=== PATIENT | female | born 1980 | race Caucasian/White ===

== ENCOUNTER 2022-07-03 13:18 | Emergency (ER) | payer BC, SELFPAY ==
[2022-07-03 13:56] VITALS: BP 151/88; PULSE 64; RESP 16; TEMP 37.2; O2SAT 99
--- NOTE | 2022-07-03 14:23 | ED.URI ---
HPI - URI/Sore Throat General Chief Complaint: Upper Respiratory Infection Stated Complaint: Sinus Time Seen by Provider: 07/03/22 14:23 Source: patient and RN notes reviewed Mode of arrival: ambulatory Limitations: no limitations History of Present Illness HPI Narrative: 41-year-old female presents to the [facility] with complaints of sinus congestion for 2-3 days. Had taken 1 dose of NyQuil, 1 dose of DayQuil. No treatment today. Denies any fevers. Denies any chest pain or abdominal pain. Denies any sore throat or ear pain. States that she just blew out yellow snot this morning. States I always get antibiotics for my primary care provider patient became hostile when and P try to explain we do not give antibiotics for all sinus congestion is a. Explained to patient that we can not prescribe a steroid for her as well as a nasal spray. She became upset, started crying and threatening to file complaints. Related Data Allergies Allergy/AdvReac Type Severity Reaction Status Date / Time No Known Allergies Allergy Verified 07/03/22 14:55 Review of Systems Review of Systems: All systems reviewed & are unremarkable except as noted in HPI and below Constitutional: Constitutional: Reports no additional constitutional complaints Eyes: Eyes: Reports no additional eye complaints ENT: Reports as per HPI, Reports nasal congestion and Denies sore throat Cardiovascular: Cardiovascular: Reports no additional cardiovascular complaints, Denies chest pain and Denies dyspnea Respiratory: Respiratory: Reports no additional respiratory complaints, Denies chest congestion, Denies cough and Denies dyspnea Gastrointestinal: Gastrointestinal: Reports no additional gastrointestinal complaints, Denies abdominal pain, Denies nausea and Denies vomiting Musculoskeletal: Musculoskeletal: Reports no additional musculoskeletal complaints Integumentary/Breasts: Skin/Breast: Reports system reviewed and no additional complaints, except as docu Neurologic: Reports system reviewed and no additional complaints, except as documented Psychiatric: Psychiatric: Reports no additional psychiatric complaints Allergic/Immunologic: Allergic/Immunologic: Reports no additional allergic/immunologic complaints [facility] Family History Family History Other Family history of coronary artery disease Hypertension Social History Social History Smoking status: Never smoker Alcohol intake: never Comments At the time of my signature, I reviewed and agree with the nursing past medical, surgical, social, and family history. There is no relevant family history pertinent to the patient complaint. Exam Const: General: cooperative, healthy appearing, comfortable, no acute distress, well developed, alert and well nourished Nutritional Appearance: well nourished and obese Orientation/consciousness: patient oriented x3 Limitations: no limitations HENMT: Head: normal to inspection Ears: hearing grossly normal bilaterally and external ears normal Face/Nose/Sinus: Normal external nose present, Normal nares present, Normal nasal mucous membranes and turbinates present, Nasal discharge present clear bilateral and normal facial exam Face and sinus: normal facial exam Mouth: Yes Normal oral and palatal mucosa present, Yes lip normal and Yes moist mucous membranes Throat: posterior oropharynx normal, uvula midline and postnasal drainage Eyes: General: appearance normal, both eyes and all related structures Alignment and Position: alignment normal Periorbital: periorbital findings normal Conjunctivae: conjunctivae normal Pupils: Equal, round and reactive pupils present EOM: EOMs intact bilaterally Neck: Neck: normal visual inspection, full ROM, no lymphadenopathy and no meningeal signs Chest: Chest palpation & inspection: normal inspection of the chest Resp: Effort
--- NOTE | 2022-07-03 14:52 | PC.NURSE ---
requested to see a different provider d/t request for abx for 3 days and provider explained no abx at this time. provider aware of pt concern.
== END 2022-07-03 14:57 | disposition home or self-care (01) ==
PROVIDERS: Emergency Provider Nurse Practitioner; PCP Otolaryngology
DX: J32.9 Chronic sinusitis, unspecified (principal)
CPT/HCPCS: 99213; G0463

== ENCOUNTER 2023-01-15 21:24 | Observation (INO) | payer BC, SELFPAY ==
[2023-01-15] VITALS (8 sets, daily range): BP systolic 162–183; BP diastolic 99–102; PULSE 70–91; RESP 15–22; TEMP 36.9; O2SAT 97–100
--- NOTE | ~2023-01-15 | CT_ITS ---
EXAMINATION: CTA brain carotid DATE: 01/15/2023 23:51 INDICATION: Slurred speech. TECHNIQUE: Computed tomographic angiography (CTA) of the head was performed without and with 100 mL O mnipaque-350 intravenous contrast. CTA of the neck was performed with intravenous contrast. Automated exposure control and iterative reconstruction technique were employed. The dose-length product was 1 808.25 mGy-cm. Maximum intensity projection and volume rendered 3D-reconstructions were created by chrissy galeas technologist on a separate workstation. COMPARISON: None. FINDINGS: HEAD CTA: There is no intracranial hemorrhage, acute infarction, or abnormal intracranial mass lesion . The ventricles are normal in size. The orbits are normal. The paranasal sinuses are clear. The mast oid air cells are normal. Right vertebral artery is dominant. There is no significant stenosis of bas ilar artery or the posterior cerebral arteries. The posterior communicating arteries are normal. Ther e is no significant stenosis of the intracranial internal carotid arteries or anterior cerebral arter ies. There is total occlusion of a right M2 middle cerebral artery. Anterior communicating artery is normal. There is no aneurysm. NECK CTA: There are no pathologically enlarged lymph nodes. There is no significant stenosis of the v ertebral arteries. There is no visible plaque in the proximal internal carotid arteries. There is 0% stenosis of the proximal right internal carotid artery relative to normal distal artery lumen diamete r (NASCET criteria). There is 0% stenosis of the proximal left internal carotid artery relative to no rmal distal artery lumen diameter. There is mild cervical spondylosis. IMPRESSION: 1. 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 2. Normal brain parenchyma. 3. 0% stenosis of the proximal internal carotid arteries relative to normal distal artery lumen diame ters (NASCET criteria). Reviewed, dictated and finalized at location A. IMPRESSION: 1. 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 2. Normal brain parenchyma. 3. 0% stenosis of the proximal internal carotid arteries relative to normal dis breann artery lumen diameters (NASCET criteria).
--- NOTE | ~2023-01-15 | MR_ITS ---
EXAMINATION: MR brain/brain stem wo/w con DATE: 01/16/2023 10:16 INDICATION: Transient ischemic attack. Left hemiparesis. TECHNIQUE: Magnetic resonance imaging (MRI) of the brain and brainstem was performed without and with 20 mL MultiHance intravenous contrast. COMPARISON: Head CT 01/15/2023 FINDINGS: There are acute infarcts involving the right frontal and parietal lobes and right insula. T here is no intracranial hemorrhage or abnormal mass lesion. There is thrombus in a right M2 middle ce rebral artery with blooming decreased T2*weighted signal intensity. There are small old infarcts in r ight cerebellum. There are scattered areas of nonspecific increased T2-weighted signal intensity in t he cerebral white matter. The ventricles are normal in size. The orbits are normal. The paranasal sin uses are clear. The mastoid air cells are normal. IMPRESSION: 1. Acute infarcts involving the right frontal and parietal lobes and right insula. 2. Thrombus in a right M2 middle cerebral artery. 3. Small old infarcts in the right cerebellum. 4. Mild nonspecific cerebral white matter disease, which likely represents chronic small vessel ische samuel disease. Reviewed, dictated and finalized at location A. IMPRESSION: 1. Acute infarcts involving the right frontal and parietal lobes and right insu la. 2. Thrombus in a right M2 middle cerebral artery. 3. Small old infarcts in the right cerebellum. 4. 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
--- NOTE | 2023-01-15 22:48 | ECG_ITS ---
Measurements Intervals [place] Rate: 76 P: 38 NH: 184 QRS: -3 QRSD: 93 T: 10 QT: 382 QTc: 432 Interpretive Statements SINUS RHYTHM DELAYED PRECORDIAL R/S TRANSITION BORDERLINE ECG NO PREVIOUS ECG AVAILABLE FOR COMPARISON Electronically Signed On 01-16-2023 7:32:56 CDT by Adi Leon D.O.
[2023-01-15] MEDS: SODIUM CHLORIDE 0.9% IV 1,000 ML 999 ML IV CONT (23:16)
[2023-01-15 23:19] LABS: Basophils Absolute Auto 0.1 K/mm3 (0.0-0.1); Basophils Percent Auto 0.8 % (0.2-1.2); Eosinophils Absolute Auto 0.3 K/mm3 (0-0.3); Eosinophils Percent Auto 3.4 % (0-4.4); Hematocrit 38.8 % (37.0-47.0); Hemoglobin 12.3 g/dL (12.0-15.0); Immature Granulocyte Absolute 0.03 K/mm3 (0.00-0.031); Immature Granulocyte Percent A 0.3 % (0-0.5); Lymphocytes Absolute Auto 1.99 K/mm3 (0.9-3.2); Lymphocytes Percent Auto 20.2 % (18.3-44.2); Mean Corpuscular HGB Conc 31.7 g/dl (32-36); Mean Corpuscular Hemoglobin 26.9 pg (26-34); Mean Corpuscular Volume 84.7 fl (80-100); Mean Platelet Volume 9.3 fl (7.4-10.4); Monocytes Absolute Auto 0.6 K/mm3 (0.1-0.6); Monocytes Percent Auto 5.6 % (2.6-8.5); Neutrophils Absolute Auto 6.9 K/mm3 (1.3-6.7); Neutrophils Percent Auto 69.7 % (45.5-73.1); Platelet Count Result 208 k/mm3 (150-375); Red Blood Count 4.58 M/mm3 (4.2-5.4); Red Cell Distribution Width 13.3 % (11.5-14.5); White Blood Count 9.9 K/mm3 (4.5-10.0)
[2023-01-15 23:23] LABS: Bacteria Urine None Seen /hpf; Non Pathogenic Casts 0-2; RBC Urine >100 /hpf (0-2); Squamous Epithelial Cell Urine Occasional /hpf (Few)
[2023-01-15 23:31] LABS: Alanine Aminotransferase 22 U/L (6-35); Albumin Level 4.4 g/dL (3.5-5.1); Alkaline Phosphatase 81 U/L (38-126); Anion Gap 8 mmol/L (8-16); Aspartate Amino Transferase 28 U/L (14-36); Bilirubin,Total 0.4 mg/dL (0.2-1.3); Blood Urea Nitrogen 16 mg/dL (7-17); Calcium 9.1 mg/dL (8.4-10.2); Carbon Dioxide 23 mmol/L (22-30); Chloride 104 mmol/L (98-107); Estimated CRCL calculation 74 ml/min; Estimated Glomerular Filt Rate 49; Glucose 109 mg/dL (65-110); Magnesium 1.7 mg/dL (1.6-2.3); Potassium 4.2 mmol/L (3.4-5.0); Sodium 135 mmol/L (137-145)
[2023-01-15 23:31] LABS: Lactic Acid Reflex 1.5 mmol/L (0.7-2.0)
[2023-01-15 23:31] LABS: Appearance Urine Cloudy (Clear); Bilirubin Urine Negative (Negative); Blood Urine 3+ (Negative); Color Urine Orange (Yellow); Glucose Urine UA Negative (Negative); Ketones Urine Negative (Negative); Leukocyte Esterase Ur Trace LEU/UL (Negative); Nitrate Urine Negative (Negative); Protein Urine Trace mg/dL (Negative); Specific Grav Ur 1.013 (1.001-1.035); Urobilinogen Urine 0.2 mg/dL (<2.0)
[2023-01-15 23:33] LABS: Add Urine Microscopic? YES
[2023-01-15 23:34] LABS: Prothrombin Time 13.1 Seconds (11.1-14.7)
[2023-01-15 23:35] LABS: Partial Thromboplastin Time 25.3 SECONDS (22.3-36.8)
[2023-01-15 23:42] LABS: Troponin I < 0.012 ng/mL (0.000-0.034)
[2023-01-16] VITALS (14 sets, daily range): BP systolic 132–162; BP diastolic 78–97; PULSE 70–90; RESP 14–20; TEMP 35.8–36.4; O2SAT 98–100
--- NOTE | 2023-01-16 01:59 | ED.GENADULT ---
HPI - General Adult General Chief complaint: Unspecified Stated complaint: limbs feel heavy Time Seen by Provider: 01/15/23 22:16 History of Present Illness HPI narrative: Patient 42-year-old female who presents the emergency department with chief complaint of weakness. 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 Patient reports no prior history of stroke no prior history of underlying disease Related Data Allergies Allergy/AdvReac Type Severity Reaction Status Date / Time No Known Allergies Allergy Verified 07/03/22 14:55 Review of Systems Review of Systems: A 10 system review of systems was completed on the patient and is negative except for what is stated in the HPI. Nursing and ancillary documentation was reviewed. [facility] Family History Family History Other Family history of coronary artery disease Hypertension Social History Social History Smoking status: Never smoker Alcohol intake: never Exam Narrative: GENERAL: Well-appearing, well-nourished, and in no acute distress. HEAD: Normocephalic, atraumatic. EYES: PERRLA and EOMI. ENT: Nares clear, no rhinorrhea or epistaxis. Mucous membranes moist. NECK: Supple. CHEST: Clear to auscultation. No respiratory distress. HEART: Regular rate and rhythm. No murmur heard. Normal peripheral pulses. ABDOMEN: Soft, nontender, nondistended, normal active bowel sounds. EXTREMITIES: Normal range of motion. No edema. SKIN: Warm, dry, no rash. NEURO: No focal deficits. Alert and oriented x3. PSYCH: Normal mood and affect. Course Vital Signs Vital signs: Vital Signs Temperature 36.9 C 01/15/23 21:26 Pulse Rate 81 01/15/23 21:26 Respiratory Rate 16 01/15/23 21:26 Blood Pressure 183/99 H 01/15/23 21:26 Pulse Oximetry 100 01/15/23 21:26 Oxygen Delivery Room Air 01/15/23 21:26 Temperature 36.9 C 01/15/23 21:26 Pulse Rate 71 01/16/23 00:45 Respiratory Rate 20 01/16/23 00:45 Blood Pressure 166/99 H 01/15/23 23:17 Pulse Oximetry 100 01/16/23 00:45 Oxygen Delivery Room Air 01/15/23 21:26 Medical Decision Making MDM Narrative Medical decision making narrative: Differential diagnosis includes CVA, large vessel occlusion, TIA, embolic event, dysrhythmia EKG showed no evidence of atrial fibrillation or dysrhythmia. Laboratory studies are within normal limits. CTA head and neck with CTA brain showed no evidence of acute abnormality. Given the patient's symptoms are resolved but given the significance of the severity the patient will be admitted for observation and MRI and echo the case was discussed with Dr. Pierson and who accepted the patient. Vital Signs Vital Signs: Vital Signs Temperature 36.9 C 01/15/23 21:26 Pulse Rate 81 01/15/23 21:26 Respiratory Rate 16 01/15/23 21:26 Blood Pressure 183/99 H 01/15/23 21:26 Pulse Oximetry 100 01/15/23 21:26 Oxygen Delivery Room Air 01/15/23 21:26 Temperature 36.9 C 01/15/23 21:26 Pulse Rate 71 01/16/23 00:45 Respiratory Rate 20 01/16/23 00:45 Blood Pressure 166/99 H 01/15/23 23:17 Pulse Oximetry 100 01/16/23 00:45 Oxygen Delivery Room Air 01/15/23 21:26 Lab Data 01/15/23 23:13 01/15/23 23:12 Labs: Lab Results 01/15/23 01/15/23 01/15/23 Range/Units 23:07 23:12 23:13 WBC 9.9 (4.5-10.0) K/mm3 RBC 4.58 (4.2-5.4) M/mm3 Hgb 12.3 (12.0-15.0) g/dL Hct 38.8 (37.0-47.0) % MCV 84.7 (80-
--- NOTE | 2023-01-16 07:33 | PM.IMHP ---
H&P: HPI History of Present Illness Date/Time: 01/16/23 07:33 Chief Complaint: Slurred speech, bilateral upper lower extremity weakness Narrative: This is a a 42-year-old female with a insignificant past medical history that presented to the ED on 01/16/2023 with chief complaint of slurred speech and bilateral upper and lower extremity weakness. Patient states that her symptoms started at 4:30 p.m. on 01/15/2023 and she noticed that when she was talking to her daughter her speech began slurring. She also noticed that her arms and legs felt really heavy and weak. She had difficulty walking and felt faint. [place] as if she was off balance and unstable on her feet. She also noticed that while she was singing to her daughter her voice was off [place] and her primary care provider was informed of this and advised her to be seen in the ER. On arrival to the ED patient's symptoms had basically dissolved. Her speech improved and she no longer has any slurred speech or dysphagia. Her lower extremities have regained their strength. She does have some lingering left hand weakness. Patient denies any smoking, history of clotting disorder or known history of prior stroke. She does take control but she has been on this for a couple decades. Patient was started on Plavix, aspirin and atorvastatin. Neurology consulted. It is in question if patient will need transferred out in to tertiary care center. Considering Hematology consult due to patient's age. CTA of the head and neck revealed total occlusion of the right M2 middle cerebral artery and 0% stenosis in bilateral carotids. Echocardiogram and MRI ordered. Review of Systems Review of Systems: All systems reviewed & are unremarkable except as noted in HPI and below [facility] Past Medical History Medical History (Updated 01/16/23 @ 13:40 by Cynthia Ascencio PA-C) Depression Surgical History Surgical History (Updated 01/16/23 @ 13:41 by Cynthia Ascencio PA-C) History of orthopedic surgery Family History Family History (Updated 01/16/23 @ 13:41 by Cynthia Ascencio PA-C) Grandparent Cerebrovascular accident Heart disease Other Family history of coronary artery disease Hypertension Social History Social History Smoking status: Never smoker Alcohol intake: never Substance use: never Substance use type: does not use Lack of Transportation: No Lack of Food: Never True Current Housing: I Have Housing Concerned About Future Housing: No Difficulty Paying Gas/Electric Bills: No Difficulty Paying for Meds: No Currently Unemployed: No Education: Bachelor's Degree Difficulty w/ Childcare or Family Care: No Spiritual care concerns: No Meds Home Medications and Allergies Home Medications Medication Instructions Recorded Confirmed Type fluticasone propionate 50 2 spray intranasal DAILY #16 grams 07/03/22 01/16/23 Rx mcg/actuation nasal spray,suspension (Flonase Allergy Relief) desogestrel 0.15 mg-ethinyl 1 tablet PO DAILY 01/16/23 01/16/23 History estradiol 0.03 mg tablet (Isibloom) escitalopram oxalate 10 mg tablet 10 mg PO DAILY 01/16/23 01/16/23 History Allergies Allergy/AdvReac Type Severity Reaction Status Date / Time No Known Allergies Allergy Verified 07/03/22 14:55 Vital Signs Vital Signs - 24 hr 01/15/23 21:26 01/15/23 22:01 01/15/23 22:07 Temperature 98.4 F Pulse Rate 81 75 71 Respiratory Rate 16 22 H 21 H Blood Pressure 183/99 H Pulse Oximetry 100 100 100 Oxygen Delivery Room Air 01/15/23 22:15 01/15/23 23:10 01/15/23 23:11 Temperature Pulse Rate 70 91 82 Respiratory Rate 22 H 20 15 Blood Pressure 162/102 H Pulse Oximetry 97 100 Oxygen Delivery 01/15/23 23:17 01/15/23 23:18 01/16/23 00:01 Temperature Pulse Rate 79 73 72 Respiratory Rate 22 H 16 14 Blood Pressure 166/99 H Pulse Oximetry 100 99 100 O
[2023-01-16] MEDS: FLUTICASONE PROPIONATE 0.05% NA SPR 16 GM BTL (*BKC) 2 SPRAY NASAL (08:15)
[2023-01-16] MEDS: ASPIRIN 81 MG CHEWABLE TABLET PO (08:15)
[2023-01-16] MEDS: ESCITALOPRAM OXALATE 10 MG TABLET PO (08:15)
[2023-01-16 08:23] LABS: Hematocrit 37.7 % (37.0-47.0); Hemoglobin 11.9 g/dL (12.0-15.0); Mean Corpuscular HGB Conc 31.6 g/dl (32-36); Mean Corpuscular Hemoglobin 26.9 pg (26-34); Mean Corpuscular Volume 85.3 fl (80-100); Mean Platelet Volume 9.4 fl (7.4-10.4); Platelet Count Result 183 k/mm3 (150-375); Red Blood Count 4.42 M/mm3 (4.2-5.4); Red Cell Distribution Width 13.2 % (11.5-14.5); White Blood Count 9.1 K/mm3 (4.5-10.0)
[2023-01-16 08:53] LABS: Anion Gap 4 mmol/L (8-16); Blood Urea Nitrogen 12 mg/dL (7-17); Calcium 8.6 mg/dL (8.4-10.2); Carbon Dioxide 22 mmol/L (22-30); Chloride 106 mmol/L (98-107); Estimated CRCL calculation 88 ml/min; Estimated Glomerular Filt Rate > 60; Glucose 103 mg/dL (65-110); Potassium 3.7 mmol/L (3.4-5.0); Sodium 132 mmol/L (137-145)
[2023-01-16 11:02] LABS: Magnesium 1.7 mg/dL (1.6-2.3)
[2023-01-16 11:06] LABS: Cholesterol 226 mg/dL (0-200); HDL Direct 70 mg/dL; Triglycerides 139 mg/dL (<150)
[2023-01-16 11:12] LABS: LDL Cholesterol Direct 118 mg/dL
[2023-01-16] MEDS: CLOPIDOGREL BISULFATE 300 MG TABLET PO (11:28)
--- NOTE | 2023-01-16 13:08 | PC.NURSE ---
Dr. Sow returned call. given information regarding MRI and CTA reports. He is on the way to see her and then will decide plan of care.
--- NOTE | 2023-01-16 15:31 | WPDNEURCNPN ---
Assessment and Plan Assessment and plan (1) CVA (cerebral vascular accident): Code(s): I63.9 - Cerebral infarction, unspecified Status: Acute (2) Thrombosis of middle cerebral artery: Code(s): I66.09 - Occlusion and stenosis of unspecified middle cerebral artery Status: Acute Plan 1. Acute infarct involving the right frontal and parietal lobes and right insula with thrombus in the right M2 middle cerebral artery. 2. Small old infarct in the right cerebellum 3. Nonspecific cerebral white matter disease representing chronic small vessel ischemic changes. 4. Total occlusion of the right M2 middle cerebral artery on CTA. 5. Continue aspirin 81 mg daily with Plavix 75 mg daily, all the pros and cons discussed with the family about the future care particularly keeping the lower cholesterol even though she is taking atorvastatin 40 mg daily she might need further adjustment in the future, follow-up with the neurologist in about 6 months, echocardiogram should be completed before she gets discharged, and we can make a courtesy call to be TRACE or slow if they want to see her at this stage though it is extremely unlikely they will do the stenting. Consult date: 01/16/23 HPI: Ayanna Muniz is a 42 year old female Admitted to the hospital through the emergency room with information that patient was initially seen in [facility] complains of sinus congestion of several days duration . She was brought to the emergency room for the complaints of weakness since 30 a.m. in the afternoon with an episode where her arms got really has very heavy and she felt weaker than normal. She gave no history of stroke in the past has no history of stroke in the past, he does not smoke does not drink and her initial vital signs in the emergency room were suggestive for hypertension with blood pressure of 183/99 and repeat 166/99 to EKG was normal without atrial fibrillation or dysrhythmia, CTA of the head and neck was normal. Routine lab studies were also normal except the [place] a she was admitted to the hospital with the diagnosis of TIA with stroke scale of 1. Subsequently CTA documented total occlusion of right M2 middle cerebral artery with normal brain parenchyma no stenosis otherwise and no bleed otherwise and brain MRI documented acute infarct involving the right frontal lobe and parietal lobe and right insula with thrombus in the right M2 middle cerebral artery also small old infarct in the right cerebellum. patient was to continue aspirin 81 mg daily to Plavix 75 mg daily Review of Systems Review of Systems: All systems reviewed & are unremarkable except as noted in HPI and below [facility] Past Medical History Medical History (Updated 01/16/23 @ 15:43 by Howard Sow MD) Depression Surgical History Surgical History (Updated 01/16/23 @ 13:41 by Cynthia Ascencio PA-C) History of orthopedic surgery Family History Family History (Updated 01/16/23 @ 13:41 by Cynthia Ascencio PA-C) Grandparent Cerebrovascular accident Heart disease Other Family history of coronary artery disease Hypertension Social History Social History Smoking status: Never smoker Alcohol intake: never Substance use: never Substance use type: does not use Lack of Transportation: No Lack of Food: Never True Current Housing: I Have Housing Concerned About Future Housing: No Difficulty Paying Gas/Electric Bills: No Difficulty Paying for Meds: No Currently Unemployed: No Education: Bachelor's Degree Difficulty w/ Childcare or Family Care: No Spiritual care concerns: No Meds Home Medications and Allergies Home Medications Medication Instructions Recorded Confirmed Type fluticasone propionate 50 2 spray intranasal DAILY #16 grams 07/03/22 01/16/23 Rx mcg/actuation nasal spray,suspension (Flonase Allergy Relief) desogestrel 0.15 mg-et
[2023-01-16] MEDS: ATORVASTATIN 40 MG TABLET PO ×2 (15:42→17:05)
[2023-01-17] VITALS (7 sets, daily range): BP systolic 145–153; BP diastolic 90–103; PULSE 61–81; RESP 16; TEMP 36.2; O2SAT 99–100
[2023-01-17] MEDS: ACETAMINOPHEN 325 MG TABLET 650 MG PO ×2 (00:55→08:22)
[2023-01-17] MEDS: ONDANSETRON INJ 4 MG/2 ML VIAL IV PUSH (00:55)
--- NOTE | 2023-01-17 06:00 | ECHO_ITS ---
Patient Info Name: Ayanna Muniz Age: 42 years : 1980 Gender: Female Ht: 66 in Wt: 280 lbs BSA: 2.50 m2 HR: 70 bpm BP: 153 / 103 mmHg Heart Rhythm: Sinus Rhythm Technical Quality: Fair Exam Date: 01/17/2023 9:22 AM Exam Location: [facility] Patient Status: Inpatient Admit Date: 01/16/2023 Staff Ordering Physician: Elliot Cody MD Electroneurodiagnostic Technician: Janie Shore RDCS Attending Provider: Erica Luther DO Referring Physician: Escobar HOBBS; Exam Type: CA echo doppler w bubble study Study Info Indications - TIA Complete two-dimensional, color flow and Doppler transthoracic echocardiogram is performed with agitated saline. Contrast/Agitated Saline Contrast/Ag. Saline: Agitated Saline Amount: 20.00 ml Existing IV Access: Yes IV Access Condition: patent with no signs of infiltration Summary 1. Normal left ventricular size thickness and systolic function. 2. Normal atrial dimensions. 3. No valvular dysfunction identified. 4. Agitated saline contrast injection demonstrates no intracardiac shunting. Left Ventricle Left ventricular chamber dimension is normal. Left ventricular systolic function is normal, estimated at 60-65%. The left ventricular diastolic function is normal. Right Ventricle Right ventricular chamber dimension is normal. Left Atria Left atrial chamber dimension is normal. Right Atria Right atrial chamber dimension is normal. Atrial Septum Intact interatrial septum visualized by agitated saline imaging. Aortic Valve The aortic valve is normal. Pulmonic Valve The pulmonic valve is not well visualized. Mitral Valve The mitral valve has normal leaflets. Tricuspid Valve The tricuspid valve leaflets are normal. Pericardium/Pleural The pericardium appears normal. Aorta The aortic root size at the sinus of Valsalva is normal. Left Ventricular Outflow Tract Name Value Normal LVOT 2D LVOT Diameter 2.0 cm LVOT Doppler LVOT Peak Gradient 6 mmHg LVOT Mean Gradient 3 mmHg LVOT VTI 24 cm LVOT VTI/AV VTI Ratio 0.8 LVOT Stroke Volume 78 ml LVOT CO 17.1 l/min LVOT CI 6.8 l/min/m2 Pulmonic Valve Name Value Normal RVOT Doppler RVOT Peak Gradient 2 mmHg PV Doppler PV Peak Gradient 3 mmHg Mitral Valve Name Value Normal MV Doppler MV Decel [place] 380 cm/s2
[2023-01-17 06:11] LABS: Hemoglobin 11.9 g/dL (12.0-15.0); Mean Corpuscular HGB Conc 31.3 g/dl (32-36); Mean Corpuscular Hemoglobin 26.6 pg (26-34); Mean Corpuscular Volume 84.8 fl (80-100); Mean Platelet Volume 9.5 fl (7.4-10.4); Platelet Count Result 206 k/mm3 (150-375); Red Blood Count 4.48 M/mm3 (4.2-5.4); Red Cell Distribution Width 13.1 % (11.5-14.5); White Blood Count 6.9 K/mm3 (4.5-10.0)
[2023-01-17 06:20] LABS: Alanine Aminotransferase 23 U/L (6-35); Alkaline Phosphatase 82 U/L (38-126); Anion Gap 3 mmol/L (8-16); Aspartate Amino Transferase 35 U/L (14-36); Bilirubin,Total 0.4 mg/dL (0.2-1.3); Blood Urea Nitrogen 9 mg/dL (7-17); Calcium 8.8 mg/dL (8.4-10.2); Carbon Dioxide 27 mmol/L (22-30); Chloride 104 mmol/L (98-107); Estimated CRCL calculation 88 ml/min; Estimated Glomerular Filt Rate > 60; Glucose 101 mg/dL (65-110); Magnesium 2.1 mg/dL (1.6-2.3); Potassium 3.8 mmol/L (3.4-5.0); Sodium 134 mmol/L (137-145)
[2023-01-17] MEDS: ATORVASTATIN 40 MG TABLET 80 MG PO (08:05)
[2023-01-17] MEDS: FLUTICASONE PROPIONATE 0.05% NA SPR 16 GM BTL (*BKC) 2 SPRAY NASAL (08:05)
[2023-01-17] MEDS: ESCITALOPRAM OXALATE 10 MG TABLET PO (08:05)
[2023-01-17] MEDS: CLOPIDOGREL BISULFATE 75 MG TABLET PO (08:05)
[2023-01-17 08:27] LABS: Hemoglobin A1C 5.6 % (<5.7)
[2023-01-17] MEDS: ASPIRIN 81 MG CHEWABLE TABLET PO (10:21)
--- NOTE | 2023-01-17 12:26 | WPDNEUROPN ---
Subjective Date/time seen: 01/17/23 12:26 Interval history: remains unchanged in fact feeling much better neuro exam and status unchanged we are waiting for the echocardiogram report and then she will be discharged Objective Data Vital Signs Vital Signs: Vital Signs - 24 hr 01/16/23 12:57 01/16/23 14:00 01/16/23 16:00 Temperature 35.8 C L Pulse Rate 80 83 Respiratory Rate 16 Blood Pressure 132/93 H Pulse Oximetry 100 Oxygen Delivery Room Air 01/16/23 21:49 01/16/23 20:00 01/16/23 20:00 Temperature 36.3 C L Pulse Rate 73 73 85 Respiratory Rate 18 18 Blood Pressure 141/92 H Pulse Oximetry 98 98 Oxygen Delivery Room Air 01/17/23 00:00 01/17/23 04:00 01/17/23 05:47 Temperature 36.2 C L Pulse Rate 69 61 72 Respiratory Rate 16 Blood Pressure 153/103 H Pulse Oximetry 100 Oxygen Delivery 01/17/23 08:00 Temperature Pulse Rate Respiratory Rate Blood Pressure Pulse Oximetry Oxygen Delivery Room Air Intake/Output Intake/Output: Intake & Output 01/14/23 01/15/23 01/16/23 01/17/23 23:59 23:59 23:59 23:59 Intake Total 2432 720 Output Total 1200 500 Balance 1232 220 Meds/Results Medications: Active Medications Generic Name Dose Route Start Last Admin Trade Name Freq PRN Reason Stop Dose Admin Acetaminophen 650 mg 01/16/23 23:36 01/17/23 08:22 Acetaminophen 325 Mg Tablet PO 650 mg Q4H PRN Administration Headache Aspirin 81 mg 01/16/23 08:00 01/17/23 10:21 Aspirin 81 Mg Chewable Tablet PO 81 mg DAILY@0800 HEIDI Administration Atorvastatin Calcium 80 mg 01/17/23 09:00 01/17/23 08:05 Atorvastatin 40 Mg Tablet PO 80 mg DAILY HEIDI Administration Clopidogrel Bisulfate 75 mg 01/17/23 09:00 01/17/23 08:05 Clopidogrel Bisulfate 75 Mg Tablet PO 75 mg QAM HEIDI Administration Escitalopram Oxalate 10 mg 01/16/23 09:00 01/17/23 08:05 Escitalopram Oxalate 10 Mg Tablet PO 10 mg DAILY HEIDI Administration Fluticasone Propionate 2 spray 01/16/23 09:00 01/17/23 08:05 Fluticasone Propionate 0.05% Na Spr 16 Gm Btl (*Bkc) NASAL 2 spray DAILY HEIDI Administration Hydralazine HCl 10 mg 01/16/23 10:29 Hydralazine Hcl 20 Mg/Ml Vial IV PUSH Q8H PRN Blood Pressure - High Miscellaneous Information 0 each 01/16/23 00:01 Isibloom Is Nonformulary - Can Patient Bring From Home? XX 02/15/23 00:00 CLARIFY HEIDI Non-Formulary Medication 1 tablet 01/16/23 09:00 Desogestrel-Ethinyl Estradiol [Isibloom] PO 02/15/23 08:59 DAILY HEIDI Ondansetron HCl 4 mg 01/17/23 00:49 01/17/23 00:55 Ondansetron Inj 4 Mg/2 Ml Vial IV PUSH 4 mg Q4H PRN Administration Nausea And Vomiting Perflutren Lipid Microsphere 0 ml 01/16/23 02:02 Perflutren Lipid Microspheres 1.5 Ml Vial Diluted To 10 Ml Total Volume IV PUSH 01/18/23 02:03 ONCE PRN adequate visualization Protocol Radiology Results: ITS Impressions Head/Neck CTA 01/16/23 09:10 IMPRESSION: 1. 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 2. Normal brain parenchyma. 3. 0% stenosis of the proximal internal carotid arteries relative to normal distal artery lumen diameters (NASCET criteria). Brain MRI 01/16/23 10:21 IMPRESSION: 1. Acute infarcts involving the right frontal and parietal lobes and right insula. 2. Thrombus in a right M2 middle cerebral artery. 3. Small old infarcts in the right cerebellum. 4. Mild nonspecific cerebral white matter disease, which likely represents chronic small vessel ischemic disease. Labs Labs: Laboratory Results - last 24 hr 01/17/23 01/17/23 05:56 05:57 WBC 6.9 RBC 4.48 Hgb 11.9 L Hct 38.0 MCV 84.8 MCH 26.6 MCHC 31.3 L RDW 13.1 Plt Count 206 MPV 9.5 Sodium 134 L Potassium 3.8 Chloride 104 Carbon Dioxide 27 Anion Gap 3 L BUN 9 Creatinine 1.00 Estim Creat Clear Calc 88 Estimated GFR > 60 Gluc
--- NOTE | 2023-01-17 16:26 | PM.IMPN ---
Progress Note: A&P Assessment and Plan (1) CVA (cerebral vascular accident): Code(s): I63.9 - Cerebral infarction, unspecified Status: Acute Assessment and Plan: Patient presented with chief complaint of right arm a weakness as well as ways changes. Patient's symptoms resolved in the ED. -Initiate stroke protocol and neuro's q.4 hours -Neurology consulted, appreciate assistance and recommendations -Monitor CBC, CMP, magnesium, and lipid profile -Monitor blood pressure, allow for permissive hypertension. Will treat hypertension if systolic is greater than 200 and/or diastolic greater than 100 or if the patient has active comorbidities -Telemetry monitoring -Start atorvastatin 40 mg daily -lipid panel revealed elevated cholesterol at 226 -Provide loading dose Plavix 300 mg and aspirin 325, transition to Plavix 75 mg daily and 81 mg aspirin daily -CTA of the head and neck revealing total occlusion of the right M2 middle cerebral artery and 0% stenosis to the bilateral carotids -MRI brain revealing acute infarcts involving the right frontal and parietal lobes and right insula. Thrombus in the right M2 middle cerebral artery and small old infarcts in the right cerebellum. -Order echocardiogram with bubble study -Monitor blood glucose -PT/OT eval and treat -Hematology workup initiated. Subjective Date/time seen: 01/17/23 16:26 Interval history: Patient doing much better today and states that she has been working on doing things with her left hand. She states that she sometimes drops things due to the having a weird sensation in her hand but other than that she is doing great. Discussed with her what Neurology at [facility] told me. Discussed medications that she will be on. She voiced her understanding of this. We are currently waiting on echocardiogram results. I have initiated the Hematology coagulopathy workup at this time. I answered all of her questions to the best my ability. Review of Systems Review of Systems: All systems reviewed & are unremarkable except as noted in HPI and below Exam Narrative: GENERAL: Comfortable, no acute distress HENMT: moist mucous membranes EYES: EOM intact b/l NECK: no lymphadenopathy RESPIRATORY: clear to auscultation CARDIO: RRR GI: soft, nontender, bowel sounds present SKIN: no rashes EXTREMITIES: no edema, redness or tenderness NEURO: Bilateral lower extremity strength 5/5, right upper extremity strength 5/5, left upper extremity strength 4/5, no facial droop, no pronator drift Objective Data Vital Signs Vital Signs: Vital Signs - 24 hr 01/16/23 21:49 01/16/23 20:00 01/16/23 20:00 Temperature 97.3 F L Pulse Rate 73 73 85 Respiratory Rate 18 18 Blood Pressure 141/92 H Pulse Oximetry 98 98 Oxygen Delivery Room Air 01/17/23 00:00 01/17/23 04:00 01/17/23 05:47 Temperature 97.1 F L Pulse Rate 69 61 72 Respiratory Rate 16 Blood Pressure 153/103 H Pulse Oximetry 100 Oxygen Delivery 01/17/23 08:00 01/17/23 08:00 01/17/23 12:00 Temperature Pulse Rate 62 71 Respiratory Rate Blood Pressure Pulse Oximetry Oxygen Delivery Room Air 01/17/23 14:00 Temperature 97.1 F L Pulse Rate 68 Respiratory Rate 16 Blood Pressure 145/90 H Pulse Oximetry 99 Oxygen Delivery Intake/Output Intake/Output: Intake & Output 01/14/23 01/15/23 01/16/23 01/17/23 23:59 23:59 23:59 23:59 Intake Total 2432 960 Output Total 1200 500 Balance 1232 460 Meds/Results Medications: Active Medications Generic Name Dose Route Start Last Admin Trade Name Freq PRN Reason Stop Dose Admin Acetaminophen 650 mg 01/16/23 23:36 01/17/23 08:22 Acetaminophen 325 Mg Tablet PO 650 mg Q4H PRN Administration Headache Aspirin 81 mg 01/16/23 08:00 01/17/23 10:21 Aspirin 81 Mg Chewable Tablet PO 81 mg DAILY@0800 HEIDI Administration Atorvastatin Calcium 80 mg 01/17/23 09:00 01/17/23 08:05 Atorvast
--- NOTE | 2023-01-17 16:47 | PM.DS ---
DS: Admitting Diagnosis Discharge Date 01/17/23 Admitting Diagnosis CVA DS: Discharge Diagnosis Discharge Diagnosis (1) CVA (cerebral vascular accident): Code(s): I63.9 - Cerebral infarction, unspecified Status: Acute Assessment and Plan: Patient presented with chief complaint of right arm a weakness as well as ways changes. Patient's symptoms resolved in the ED. -Initiate stroke protocol and neuro's q.4 hours -Neurology consulted, appreciate assistance and recommendations -Monitor CBC, CMP, magnesium, and lipid profile -Monitor blood pressure, allow for permissive hypertension. Will treat hypertension if systolic is greater than 200 and/or diastolic greater than 100 or if the patient has active comorbidities -Telemetry monitoring -Start atorvastatin 40 mg daily -lipid panel revealed elevated cholesterol at 226 -Provide loading dose Plavix 300 mg and aspirin 325, transition to Plavix 75 mg daily and 81 mg aspirin daily -CTA of the head and neck revealing total occlusion of the right M2 middle cerebral artery and 0% stenosis to the bilateral carotids -MRI brain revealing acute infarcts involving the right frontal and parietal lobes and right insula. Thrombus in the right M2 middle cerebral artery and small old infarcts in the right cerebellum. -Order echocardiogram with bubble study -Monitor blood glucose -PT/OT eval and treat -Hematology workup initiated. DS: Summary Hospital Course Hospital Course: This is a a 42-year-old female with a insignificant past medical history that presented to the ED on 01/16/2023 with chief complaint of slurred speech and bilateral upper and lower extremity weakness.? Patient states that her symptoms started at 4:30 p.m. on 01/15/2023 and she noticed that when she was talking to her daughter her speech began slurring.? She also noticed that her arms and legs felt really heavy and weak.? She had difficulty walking and felt faint.? [place] as if she was off balance and unstable on her feet.? She also noticed that while she was singing to her daughter her voice was off [place] and her primary care provider was informed of this and advised her to be seen in the ER.? On arrival to the ED patient's symptoms had basically dissolved.? Her speech improved and she no longer has any slurred speech or dysphagia.? Her lower extremities have regained their strength.? She does have some lingering left hand weakness.? Patient denies any smoking, history of clotting disorder or known history of prior stroke.? She does take control but she has been on this for a couple decades.? Patient was started on Plavix, aspirin and atorvastatin.? Neurology consulted. PT and OT was consulted and discharged patient from their service. Called [facility] neurology department and spoke with Dr. Delacruz regarding patient's condition.? She stated that since onset of symptoms were greater than 24 hours she would not be candidate for thrombectomy.?Since patient's stroke scale is 0 she advised loading dose of Plavix 300 mg and then 3 weeks of 75 mg Plavix thereafter.? Loading dose of aspirin 325 mg then 81 mg aspirin daily patient's LDL was greater than 70 the she was started on 80 mg of atorvastatin.? Patient to receive echocardiogram that was normal.? Hematology workup initiated. Discussed with patient the need to follow-up with hematology as well as Neurology. Patient wishes to follow-up with neurology a [facility]. Stated that her primary care provider would need to send referral over and marked is urgent so she could get an appointment in a timely manner. Advised patient to return to hospital if new or worsening neurological symptoms manifest. She verbalized her understanding. After 48 hours from symptom onset patient did not regress nor have any new neurological changes. Her labs and vital signs are stable and she is medically cleared for discharge. Time Spent with Patient Time attestation: Total time spent providing and/or c
[2023-01-17 18:01] LABS: Prothrombin Time 13.1 Seconds (11.1-14.7)
[2023-01-17 18:02] LABS: Partial Thromboplastin Time 25.7 SECONDS (22.3-36.8)
[2023-01-17 18:19] LABS: Erythrocyte Sedimentation Rate 14 mm/hr (0-20)
[2023-01-21 03:49] LABS: Lupus dRVVT Screen 38 sec (<=45); PTT-LA Screen 32 sec (<=40)
[2023-01-21 12:52] LABS: Homocysteine 13.6 umol/L (<10.4)
[2023-01-21 20:13] LABS: Antithrombin III Activity 128 % normal (80-135)
[2023-01-22 13:25] LABS: Protein C Antigen 95 % normal (70-140)
[2023-01-22 14:13] LABS: Anti Nuclear Antibody Titer 1:40 (Negative)
[2023-01-22 23:41] LABS: Factor V (Leiden) Mutation NEGATIVE
[2023-01-23 13:31] LABS: Anti Cardio Antibody IgM <2.0 MPL-U/mL (<20.0); Anti Cardiolipin Antibody IgA <2.0 APL-U/mL (<20.0); Anti Cardiolipin Antibody IgG <2.0 GPL-U/mL (<20.0)
== END 2023-01-17 18:50 | disposition home or self-care (01) ==
LOC: ANHED 01-16 02:02 → ANH3MEDSUR 01-16 03:05
PROVIDERS: Admitting Provider Internal Medicine; Emergency Provider Emergency Medicine; PCP Physician Assistant; Visit Provider Internal Medicine Critical Care Medicine
DX: I63.9 Cerebral infarction, unspecified (principal); I66.09 Occlusion and stenosis of unspecified middle cerebral artery; R26.81 Unsteadiness on feet; F32.A Depression, unspecified; R90.82 White matter disease, unspecified; Z79.51 Long term (current) use of inhaled steroids; Z79.3 Long term (current) use of hormonal contraceptives; Z79.899 Other long term (current) drug therapy
CPT/HCPCS: 36415; 70496; 70498; 70553; 80048; 80053; 80061; 81001; 81025; 81240; 81241; 81291; 83036; 83090; 83605; 83735; 84484; 85025; 85027; 85260; 85300; 85302; 85303; 85306; 85610; 85613; 85652; 85730; 86038; 86039; 86147; 87086; 87088; 93005; 93306; 96361; 96374; 96375; 97161; 97165; 99285; A9270; A9577; G0378; J2405; J7030; Q9967